=== PATIENT | male | born 1970 | race African-American/Black ===

== ENCOUNTER 2020-10-24 10:25 | Emergency (ER) | payer BC, OTHER ==
[2020-10-24 10:42] VITALS: BP 136/79; PULSE 88
--- NOTE | 2020-10-24 11:20 | EDM.PDOC ---
ED HPI GENERAL MEDICAL PROBLEM - General Chief Complaint: Upper Extremity Injury/Pain Stated Complaint: SHOULDER,NECK AND UPPER BACK PAIN X 1 WEEK Time Seen by Provider: 10/24/20 10:36 Source of Information: Reports: Patient History Limitations: Reports: No Limitations - History of Present Illness INITIAL COMMENTS - FREE TEXT/NARRATIVE: The patient presents with right neck and right shoulder pain. This started about a week ago when he woke up one morning. He did not injure it in any way. The pain was more in the posterior shoulder. Now he has pain to his right neck and pain that radiates down his right arm. He has no numbness or weakness to his right arm. This has never happened to him before. He has no fever, chills, cough, chest pain, shortness of breath, abdominal pain, nausea or vomiting. Onset: Gradual Duration: Week(s): Location: Reports: Neck (right neck), Upper Extremity, Right (posterior shoulder) Quality: Reports: Sharp Severity: Moderate Improves with: Reports: Immobilization Worsens with: Reports: Movement Context: Denies: Trauma Associated Symptoms: Reports: No Other Symptoms Right Arm Pain Score (Numeric/FACES): 9 - Related Data Allergies Allergy/AdvReac Type Severity Reaction Status Date / Time No Known Allergies Allergy Verified 10/24/20 10:36 Home Meds: Home Meds Cyclobenzaprine [Flexeril] 10 mg PO TID PRN #20 tab 10/24/20 [Rx] Past Medical History - Past Health History Medical/Surgical History: Denies Medical/Surgical History Social & Family History - Tobacco Use Tobacco Use Status *Q: Never Tobacco User - Caffeine Use Caffeine Use: Reports: None - Recreational Drug Use Recreational Drug Use: No Review of Systems - Review of Systems Review Of Systems: See Below Constitutional: Reports: No Symptoms Eyes: Reports: No Symptoms Ears: Reports: No Symptoms Nose: Reports: No Symptoms Mouth/Throat: Reports: No Symptoms Respiratory: Reports: No Symptoms Cardiovascular: Reports: No Symptoms GI/Abdominal: Reports: No Symptoms Genitourinary: Reports: No Symptoms Musculoskeletal: Reports: Neck Pain, Shoulder Pain ED EXAM, GENERAL - Physical Exam Exam: See Below Exam Limited By: No Limitations General Appearance: Alert, No Apparent Distress Ears: Normal External Exam Nose: Normal Inspection Head: Atraumatic, Normocephalic Neck: Other (Mild tenderness to the right lateral neck) Respiratory/Chest: No Respiratory Distress, Lungs Clear, Normal Breath Sounds Cardiovascular: Regular Rate, Rhythm, No Edema, No Murmur GI/Abdominal: Soft, Non-Tender, No Organomegaly, No Mass Extremities: Other (Pain upon palpation to the right posterior shoulder. Good sensation and pulses distally. Equal manager inpatient strength and equal proximal muscle strength.) Course - Vital Signs Last Recorded V/S: Last Vital Signs Temp 97.4 F 10/24/20 10:38 Pulse 88 10/24/20 10:38 Resp 12 10/24/20 10:38 BP 136/79 10/24/20 10:38 Pulse Ox 100 10/24/20 10:38 - Orders/Labs/Meds Orders: Active Orders 24 hr Category Date Time Status Cervical Spine 2V or 3V [CR] Stat Exams 10/24/20 10:52 Taken Shoulder Comp Rt [CR] Stat Exams 10/24/20 10:53 Taken - Re-Assessments/Exams Free Text/Narrative Re-Assessment/Exam: 10/24/20 11:20 I ordered an x-ray of his shoulder and cervical spine. 10/24/20 11:37 The x-rays look good. I will get him a muscle relaxer and have him take motrin or aleve. Departure - Departure Time of Disposition: 11:40 Disposition: Home, Self-Care 01 Condition: Good Clinical Impression: Upper back strain Qualifiers: Encounter type: initial encounter Qualified Code(s): S29.012A - Strain of muscle and tendon of back wall of thorax, initial encounter - Discharge Information *PRESCRIPTION DRUG MONITORING PROGRAM REVIEWED*: No *COPY OF PRESCRIPTION DRUG MONITORING REPORT IN PATIENT ANGELICA: No Prescriptions: Cyclobenzaprine [Flexeril] 10 mg PO TID PRN #20 tab PRN Reason: Pain Referrals: PCP,None [Primary Care Provider] - Gamaliel Salinas PA-C [Physician [facility]] - 1 Week Forms: ED Department Discharge Additional Instructions: Take motrin or eleve for pain. Try flexeril 10mg every 8 hours for pain. Follow up with physical therapy and Gamaliel Salinas. Please return if you are worse. Sepsis Event Note (ED) - Evaluation Sepsis Screening Result: No Definite Risk - Focused Exam Vital Signs: Vital Signs Temp Pulse Resp BP Pulse Ox 10/24/20 10:38 97.4 F 88 12 136/79 100 - My Orders Last 24 Hours: My Active Orders 10/24/20 10:52 Cervical Spine 2V or 3V [CR] Stat 10/24/20 10:53 Shoulder Comp Rt [CR] Stat - Assessment/Plan Last 24 Hours: My Active Orders 10/24/20 10:52 Cervical Spine 2V or 3V [CR] Stat 10/24/20 10:53 Shoulder Comp Rt [CR] Stat
--- NOTE | 2020-10-24 11:54 | CR ---
Cervical spine: AP, lateral and odontoid views of the cervical spine were obtained. Comparison: No prior cervical spine imaging is available. Moderate disc space narrowing is noted at C3-4, C5-6 with mild disc space narrowing at C6-7. Anterior osteophytes are seen at these levels. Detached calcifications are also noted at C3-4 and C4-5 which appear old. Posterior spurring is noted at C5-6 and C6-7. Prevertebral soft tissues are normal. Spurring is noted within the uncovertebral joints most prominent at C5-6. No acute fracture or subluxation is appreciated. Impression: 1. Degenerative change as noted above. 2. Nothing acute is seen. Diagnostic code #2
--- NOTE | 2020-10-24 11:54 | CR ---
Right shoulder: 3 views of the right shoulder were obtained. Comparison: No previous study. Glenohumeral joint and acromioclavicular joint appear normal. No acute fracture, dislocation or other bony abnormality is appreciated. Impression: 1. No abnormality is identified on 3 view right shoulder study. Diagnostic code #1
== END 2020-10-24 11:53 | disposition home or self-care (01) ==
LOC: JD.ED 10:25
DX: S29.012A Strain of muscle and tendon of back wall of thorax, initial encounter (principal); M54.2 Cervicalgia; X58.XXXA Exposure to other specified factors, initial encounter
CPT/HCPCS: 72040; 72040-26; 73030-26-RT; 73030-RT; 99283

== ENCOUNTER 2020-11-01 18:16 | Emergency (ER) | payer BC ==
[2020-11-01 18:33] VITALS: BP 134/97; PULSE 101
--- NOTE | 2020-11-01 19:01 | EDM.PDOC ---
ED HPI GENERAL MEDICAL PROBLEM - General Chief Complaint: Upper Extremity Injury/Pain Stated Complaint: back pain Time Seen by Provider: 11/01/20 18:31 Source of Information: Reports: Patient History Limitations: Reports: No Limitations - History of Present Illness INITIAL COMMENTS - FREE TEXT/NARRATIVE: 50-year-old male presents to the emergency department with complaints of right lateral upper arm and forearm pain radiating from his cervical spine. He also has noted numbness and tingling to the tips of the second third and fourth fingers on that hand. Patient states he was seen in the emergency department about a week ago and an x-ray was completed and was sent home with some Flexeril however he states that this has not helped at all. He states that when he lays in bed or he sleeping the pain is significantly worse and he is unable to sleep however when he is up and active at work, there is no pain noted. Right Arm Pain Score (Numeric/FACES): 10 - Related Data Allergies Allergy/AdvReac Type Severity Reaction Status Date / Time No Known Allergies Allergy Verified 11/01/20 18:33 Home Meds: Home Meds Diclofenac Sodium [Voltaren] 75 mg PO BIDMEALS #16 tab.cr 11/01/20 [Rx] Omeprazole Magnesium [Prilosec Otc] 20 mg PO DAILY #20 tablet. 11/01/20 [Rx] predniSONE [Prednisone] 20 mg PO ASDIRECTED #15 tablet 11/01/20 [Rx] Past Medical History - Past Health History Medical/Surgical History: Denies Medical/Surgical History Social & Family History - Tobacco Use Tobacco Use Status *Q: Never Tobacco User - Caffeine Use Caffeine Use: Reports: None - Recreational Drug Use Recreational Drug Use: No Review of Systems - Review of Systems Review Of Systems: Comprehensive ROS is negative, except as noted in HPI. ED EXAM, GENERAL - Physical Exam Exam: See Below Exam Limited By: No Limitations General Appearance: Alert, WD/WN, No Apparent Distress Ears: Normal External Exam, Hearing Grossly Normal Nose: Normal Inspection Throat/Mouth: Normal Inspection, Normal Lips, Normal Voice, No Airway Compromise Head: Atraumatic, Normocephalic Neck: Normal Inspection, Supple, Full Range of Motion, Tender Midline. No: Tender Lateral Respiratory/Chest: No Respiratory Distress, No Accessory Muscle Use Cardiovascular: Normal Peripheral Pulses Peripheral Pulses: 2+: Radial (L), Radial (R) GI/Abdominal: No Distention (Male) Exam: Deferred Rectal (Males) Exam: Deferred Back Exam: Normal Inspection, Full Range of Motion Extremities: Normal Inspection, Normal Range of Motion, Non-Tender, No Pedal Edema, Normal Capillary Refill Neurological: Alert, Oriented, Normal Cognition Psychiatric: Normal Affect, Normal Mood Skin Exam: Warm, Dry, Intact, Normal Color, No Rash Lymphatic: No Adenopathy Course - Vital Signs Text/Narrative:: 50-year-old male presenting with pain in the cervical spine. Patient was recently seen and treated in the emergency department approximately 1 week ago for complaints of back and right shoulder pain. He states this is progressively worsened as he now has pain on his right lateral humerus and ulnar area with numbness noted to the tips of the second third and fourth digits. States that he does not notice the pain when he is up and moving about and is working however he states when he lays down in bed the pain progressively worsened throughout the night and he is unable to tolerate it. States when he wakes up first thing in the morning he has to sit at the side of the bed for a moment and wait for the pain resolved before he gets moving. I have ordered CT of the cervical spine. Last Recorded V/S: Last Vital Signs Temp 96.9 F 11/01/20 18:29 Pulse 101 H 11/01/20 18:29 Resp 18 11/01/20 18:29 BP 134/97 H 11/01/20 18:29 Pulse Ox 100 11/01/20 18:29 - Re-Assessments/Exams Free Text/Narrative Re-Assessment/Exam: 11/01/20 19:48 CT of the cervical spine radiologist impression: Minimal bilateral neural foraminal stenosis is noted at C2-3. Moderate to severe bilateral neural foraminal stenosis is noted at C3-4. Moderate to severe left-sided neural foraminal stenosis is noted at C4-5 with minimal right-sided neural foraminal stenosis at C4-5. Severe right-sided neural foraminal stenosis is seen at C5-6 with moderate left-sided neural foraminal stenosis. Mild bilateral neural foraminal stenosis is noted at C5-6. Moderate left-sided neural foraminal stenosis is seen at C7-T1. No bony central canal stenosis is seen. AP views show degenerative spurring within the on covertebral joints most prominent at C5-6. No acute fracture or subluxation is seen. Departure - Departure Time of Disposition: 19:50 Disposition: Home, Self-Care 01 Condition: Good Clinical Impression: Spinal stenosis in cervical region - Discharge Information Prescriptions: predniSONE [Prednisone] 20 mg PO ASDIRECTED #15 tablet Omeprazole Magnesium [Prilosec Otc] 20 mg PO DAILY #20 tablet. Diclofenac Sodium [Voltaren] 75 mg PO BIDMEALS #16 tab.cr Referrals: PCP,None [Primary Care Provider] - Forms: ED Department Discharge Additional Instructions: You were seen in the emergency department today with pain in your cervical spine that radiates down your right arm into your second third and fourth fingers. Numbness was noted on the tips of second third and fourth fingers. A CT scan wa s completed which showed that you had stenosis in your cervical spine. I have given you a prescription for Prilosec 20 mg to be taken daily in the morning. You will also need to take prednisone 20 mg twice daily x5 days then 20 mg once daily x5 days. Voltaren 75 mg twice daily with food. These medications will likely take 48 hours before you notice any decrease in pain or numbness. You will need to follow-up with the orthopedic surgeon, Dr. Vivar, in the clinic. You will need to call and schedule an appointment and the phone number is [phone]. Call and schedule the appointment as soon as possible. Should your condition worsen or change do not hesitate to return to the emergency department. Sepsis Event Note (ED) - Evaluation Sepsis Screening Result: No Definite Risk - Focused Exam Vital Signs: Vital Signs Temp Pulse Resp BP Pulse Ox 11/01/20 18:29 96.9 F 101 H 18 134/97 H 100
--- NOTE | 2020-11-01 19:33 | CT ---
CT cervical spine Technique: Multiple axial sections were obtained from above C1 inferiorly to the lower T3 level. Reconstructed coronal and sagittal images were obtained. Findings: Disc space narrowing is noted at C3-4 through C6-7. Anterior osteophytes are noted. Posterior osteophytes are seen at C5-6 as well as C6-7. Mild anterior osteophytes are seen within the upper thoracic spine. No fracture is appreciated. No abnormal subluxation is seen. Minimal bilateral neural foraminal stenosis is noted at C2-3. Moderate to severe bilateral neural foraminal stenosis is noted at C3-4. Moderate to severe left-sided neural foraminal stenosis is noted at C4-5 with minimal right-sided neural foraminal stenosis at C4-5. Severe right-sided neural foraminal stenosis is seen at C5-6 with moderate left-sided neural foraminal stenosis. Mild bilateral neural foraminal stenosis is noted at C5-6. Moderate left-sided neural foraminal stenosis is seen at C7-T1. No bony central canal stenosis is seen. AP view shows degenerative spurring within the uncovertebral joints most prominent at C5-6. Sinus disease is seen within the ethmoid sinuses and maxillary sinuses which appears to be mostly chronic. Impression: 1. Degenerative change as noted above. 2. Sinus disease which is most likely chronic. 3. No acute fracture or subluxation is seen. Diagnostic code #2
== END 2020-11-01 20:08 | disposition home or self-care (01) ==
LOC: JD.ED 18:16
DX: M48.02 Spinal stenosis, cervical region (principal)
CPT/HCPCS: 72125; 72125-26; 99283; 99284-25